=== PATIENT | male | born 1960 | race Caucasian/White ===

== ENCOUNTER 2016-10-19 11:16 | Observation (INO) ==
--- NOTE | 2016-10-19 11:44 | Emergency Department Note ---
Disposition Clinical Impression: Aplastic anemia Qualifiers: Bone marrow failure anemia type: unspecified bone marrow failure Qualified Code (s): D61.9 - Aplastic anemia, unspecified Anemia Qualifiers: Anemia type: unspecified type Qualified Code(s): D64.9 - Anemia, unspecified Disposition: Admitted As Inpatient Referrals: Juan Chang DO [Primary Care Provider] - Forms: ED Satisfaction Letter Time of Disposition: 12:25 Recheck wound or abnormal lab - General Chief Complaint: ED Recheck/Abnormal Lab/Rx Stated Complaint: abnormal labs, low hgb Time Seen by Provider: 10/19/16 11:38 Source: patient, family Mode of arrival: ambulatory Limitations: no limitations Nursing Notes Reviewed: Yes Vital Signs Reviewed: Yes - History of Present Illness HPI Narrative: 6-year-old male with a history of aplastic anemia comes in with for a blood transfusion he was seen yesterday in hematology and his hemoglobin was reported at 5. Patient did have a intracerebral hemorrhage back in August and did receive blood then. He at this point in time. Pt Subjective Complaint: abnormal lab(s) Symptoms Since Prior Visit: no new symptoms Context: called for abnormal lab result Associated symptoms: other (Weakness lysed) - Related Data Previous Rx's Medication Instructions Recorded Handicap Placard 1 each .ROUTE AD #1 each 01/07/15 Aspirin [Adult Low Dose Aspirin EC] 81 mg PO DAILY #30 tablet. 03/07/15 Atorvastatin Calcium [Lipitor] 80 mg PO DAILY #30 tablet 03/07/15 Folic Acid 1 mg PO DAILY #30 tablet 03/07/15 Pantoprazole Sodium 40 mg PO DAILY #30 tablet. 03/07/15 Hydrocortisone 2.5% CREAM [Cortaid] 1 appl TP TID #1 tube 07/23/15 Aspirin Enteric Coated [Aspirin EC] 81 mg PO DAILY #90 tablet. 09/12/15 Folic Acid 1 mg PO DAILY #90 tablet 09/12/15 Cyanocobalamin (Vitamin B-12) 1,000 mcg PO DAILY #30 tablet 12/10/15 [Vitamin B-12] Calcium Carbonate/Vitamin D3 1 tab PO DAILY #30 tablet 02/03/16 [Calcium 600 + Vit D Tablet] Hydrocodone/Acetaminophen [[place] 1 each PO BID PRN #60 tablet 02/03/16 5-325 Tablet] HYDROcodone/Acet 10/325 mg [[place] 1 tab PO Q6HR PRN #60 tab 05/14/16 10-325 mg] predniSONE [PredniSONE] 2 tab PO DAILY #60 tablet 10/05/16 Allergies Allergy/AdvReac Type Severity Reaction Status Date / Time No Known Allergies Allergy Verified 01/07/15 13:55 Constitutional: Denies: fever, chills, weakness, weight change Eyes: Denies: eye pain, eye discharge, vision change ENT ED: Denies: ear pain, throat pain, dental pain, hearing loss, epistaxis, congestion, dysphagia Cardiovascular: Denies: chest pain, palpitations, dyspnea on exertion, edema, syncope Respiratory: Denies: cough, dyspnea, wheezes, hemoptysis, stridor Gastrointestinal: Denies: abdominal pain, nausea, vomiting, diarrhea, constipation, hematemesis, melena, hematochezia Genitourinary: Denies: urgency, dysuria, frequency, hematuria Musculoskeletal: Denies: back pain, neck pain, arthralgia, myalgia Integumentary: Denies: rash, abrasion, lesions Neurological: Reports: weakness. Denies: headache, numbness, paresthesias, confusion, abnormal gait, vertigo Psychiatric: Denies: anxiety, depression, suicidal thoughts, homicidal thoughts , auditory hallucinations, visual hallucinations Endocrine: Denies: fatigue Hematological/Lymphatic: Denies: easy bleeding, easy bruising Allergic/Immunologic: Denies: facial swelling, urticaria Past Medical History - Past Medical History Medical history: Reports: cancer, CHF, COPD, coronary artery disease, CVA, hyperlipidemia, myocardial infarction, seizures Psychiatric history: Reports: no psych history - Social History Smoking Status: Current every day smoker Smokeless Tobacco Status: No Alcohol use: Reports: none Drug use: Reports: none Physical Exam - General Limitations: no limitations General appearance: alert, in no apparent distress - Head Head exam: atraumatic, normocephalic, normal inspection - Eye Eye exam: Present: normal appearance, PERRL, EOMI - ENT ENT exam: normal exam, normal oropharynx, mucous membranes moist - Neck Neck exam: Present: normal inspection, full ROM, trachea midline - Chest Chest inspection: Present: normal inspection, symmetric chest wall rise - Respiratory Respiratory exam: Present: normal lung sounds bilaterally - Cardiovascular Cardiovascular exam: Present: regular rate, normal rhythm, normal heart sounds - Abdominal Exam Abdominal exam: Present: soft, Non-Tender. Absent: tenderness, distention, guarding, rebound, rigidity - Extremities Exam Extremities exam: Present: normal inspection, full ROM. Absent: tenderness, pedal edema - Expanded Lower Extremity Exam Neurovascular/Tendon exam: Absent: motor deficit, sensory deficit, tendon deficit Gait: observed and normal - Back Exam Back exam: Present: normal inspection, full ROM. Absent: tenderness - Neurological Exam Neurological exam: Present: alert, oriented X3 - Psychiatric Psychiatric exam: Present: normal affect, normal mood - Skin Skin exam: Present: warm, dry, intact, normal color Course - Reevaluation(s) Reevaluation #1: Patient with a lifelong history of aplastic anemia who was seen in the hematology clinic yesterday had lab work done came back today with a hemoglobin of 5.4. He was sent here for transfusion. Time: 12:24 - Consultations Consultation #1: Discussed with , admit. Time: 12:24 Vital Signs Temperature 98.1 F 10/19/16 11:22 Pulse Rate 101 10/19/16 11:22 Respiratory Rate 18 10/19/16 11:22 Blood Pressure 124/70 10/19/16 11:22 O2 Sat by Pulse Oximetry 99 10/19/16 11:22 Temperature 98.1 F 10/19/16 11:22 Pulse Rate 63 10/19/16 12:11 Respiratory Rate 18 10/19/16 12:11 Blood Pressure 154/90 10/19/16 12:11 O2 Sat by Pulse Oximetry 99 10/19/16 12:11 Oxygen Delivery Oxygen Delivery Room Air Recheck wound or abnormal lab - Lab Data Lab results reviewed: Yes I reviewed the patient's lab results. Result diagrams: 10/19/16 11:51 10/19/16 11:51 Lab Results 10/19/16 10/19/16 10/19/16 Range/Units 11:51 11:51 11:51 WBC 5.5 (4.3-11.1) K/mcL RBC 1.56 L (4.19-5.50) M/mcL Hgb 5.6 L* (12.9-16.9) g/dL Hct 16.9 L (37.5-50.1) % MCV 108.3 H (83.0-100.0) fL MCH 35.9 H (28.0-33.3) pg MCHC 33.1 (31.6-35.5) g/dL RDW 23.2 H (11.5-14.5) % Plt Count 173 (140-400) K/mcL MPV 10.9 (9.4-12.4) fL PT 10.7 (9.4-12.1) Seconds INR 1.0 APTT 23.5 L (26.0-36.0) Seconds Sodium 137 (136-145) mEq/L Potassium 4.4 (3.5-4.5) mEq/L Chloride 103 (98-109) mEq/L Carbon Dioxide 27 (19-29) mEq/L BUN 15 (8-26) mg/dL Creatinine 1.08 (0.72-1.25) mg/dL Est GFR ( Amer) > 60 (> 60) Est GFR (Non-Af Amer) > 60 (> 60) BUN/Creatinine Ratio 14 (6-26) Glucose 101 H (70-99) mg/dL Calculated Osmolality 285 (280-300) Calcium 9.1 (8.6-10.8) mg/dL
[2016-10-19 12:03] LABS: Basophils % 0.2 %; Eosinophils # 0.1 K/mcL (0.0-0.6); Eosinophils % 2.4 %; Hematocrit 16.9 % (37.5-50.1); Immature Granulocytes % 0.5 % (0-4); Lymphocytes # 1.6 K/mcL (0.6-4.6); Lymphocytes % 29.3 %; Mean Corpuscular HGB Conc 33.1 g/dL (31.6-35.5); Mean Corpuscular Hemoglobin 35.9 pg (28.0-33.3); Mean Corpuscular Volume 108.3 fL (83.0-100.0); Mean Platelet Volume 10.9 fL (9.4-12.4); Monocytes # 0.4 K/mcL (0.0-1.3); Monocytes % 7.7 %; Neutrophils # 3.3 K/mcL (1.6-8.9); Platelet Count 173 K/mcL (140-400); Red Blood Count 1.56 M/mcL (4.19-5.50); Red Cell Distribution Width 23.2 % (11.5-14.5); Segmented Neutrophils % 59.9 %
[2016-10-19 12:07] LABS: Hemoglobin 5.6 g/dL (12.9-16.9)
[2016-10-19 12:10] LABS: Prothrombin Time 10.7 Seconds (9.4-12.1)
[2016-10-19 12:13] LABS: Activated Partial Thrombo Time 23.5 Seconds (26.0-36.0)
[2016-10-19 12:15] LABS: BUN/Creatinine Ratio 14 (6-26); Blood Urea Nitrogen 15 mg/dL (8-26); Calcium 9.1 mg/dL (8.6-10.8); Carbon Dioxide 27 mEq/L (19-29); Chloride 103 mEq/L (98-109); Glucose 101 mg/dL (70-99); Osmolality,Calculated 285 (280-300); Potassium 4.4 mEq/L (3.5-4.5); Sodium 137 mEq/L (136-145); eGFR For African Americans > 60 (> 60); eGFR For Non-African Americans > 60 (> 60)
[2016-10-19 12:26] LABS: Anisocytosis 3+ (Not Present); Hypochromasia Present (Not Present); Microcytosis Present (Not Present)
[2016-10-19 12:27] LABS: Platelet Estimate Normal (Normal)
--- NOTE | 2016-10-19 13:18 | Internal Med History&Physical ---
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 We will transfuse packed red blood cells. Consult hematology for further recommendations. Moderate risk for complications. We will check iron, folic acid and B12 levels. 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 Follow hematology oncology recommendations Internal Medicine - H&P: HPI Chief complaint: Low hemoglobin levels Admitted From: Emergency Dept Plans for Post Hospital Care: Home History of present illness: Mr. Martinez is a 56 year old male patient with history of pure red cell aplasia , intracranial hemorrhage, prior bioprosthetic aortic valve replacement presented to the ER with complaints of low hemoglobin levels. Patient denies any dizziness or weakness but gets tired with minimal activity. He had a intracranial hemorrhage earlier this year that required intracranial surgery and evacuation during which time he required blood transfusion. He underwent skull replacement last month. He has not required blood transfusions otherwise and has maintained his blood counts fairly well with medications. He has been on prednisone, vitamin B12 and folic acid. Blood work done yesterday showed a hemoglobin of 5.4. As such she was asked to come to the ER. This morning his hemoglobin level is 5.6. He denies any hematemesis or melena. No other bleeding reported. Patient is not on long-term anticoagulation. He does take daily 81 mg aspirin. Past Med Surg Social Fam HX - Past Medical History Attestation: Yes The following information was validated with the patient. Source: patient, obtained from family Medical history: cancer, CHF, COPD, coronary artery disease, CVA, hyperlipidemia , myocardial infarction, seizures, other (Pure red cell aplasia) Psychiatric history: no psych history - Social History Smoking Status: Current every day smoker Smokeless Tobacco Status: No Alcohol use: none Drug use: none - Additional Family History Additional family history: Reviewed and found to be noncontributory at this time Internal Medicine - H&P: Meds Handicap Placard 1 each .ROUTE AD #1 each 01/07/15 [Rx] Aspirin [Adult Low Dose Aspirin EC] 81 mg PO DAILY #30 tablet. 03/07/15 [Rx] Atorvastatin Calcium [Lipitor] 80 mg PO DAILY #30 tablet 03/07/15 [Rx] Folic Acid 1 mg PO DAILY #30 tablet 03/07/15 [Rx] Pantoprazole Sodium 40 mg PO DAILY #30 tablet. 03/07/15 [Rx] Hydrocortisone 2.5% CREAM [Cortaid] 1 appl TP TID #1 tube 07/23/15 [Rx] Aspirin Enteric Coated [Aspirin EC] 81 mg PO DAILY #90 tablet. 09/12/15 [Rx] Folic Acid 1 mg PO DAILY #90 tablet 09/12/15 [Rx] Cyanocobalamin (Vitamin B-12) [Vitamin B-12] 1,000 mcg PO DAILY #30 tablet 12/09 [Rx] Calcium Carbonate/Vitamin D3 [Calcium 600 + Vit D Tablet] 1 tab PO DAILY #30 tablet 02/03/16 [Rx] Hydrocodone/Acetaminophen [[place] 5-325 Tablet] 1 each PO BID PRN #60 tablet 08/15 [Rx] HYDROcodone/Acet 10/325 mg [[place] 10-325 mg] 1 tab PO Q6HR PRN #60 tab 05/14/16 [Rx] predniSONE [PredniSONE] 2 tab PO DAILY #60 tablet 10/05/16 [Rx] Allergies No Known Allergies Allergy (Verified 01/07/15 13:55) All Systems PM: A 10-system review of systems was performed and is negative for pertinent findings except as documented above in the HPI. - Constitutional Constitutional: fatigue, no chills, no fever(s), no night sweats - EENT Eyes: no change in vision, no discharge, no pain, no photophobia Ears: no ear discharge, no ear pain, no tinnitus Nose, mouth and throat: no dysphagia, no nasal discharge, no neck pain, no sore throat - Cardiovascular Cardiovascular ROS IM: no chest pain, no diaphoresis, no dyspnea, no lightheadedness, no palpitations, no syncope - Respiratory Respiratory: no cough, no dyspnea, no wheezing, no excessive phlegm production - Gastrointestinal Gastrointestinal: no abdominal pain, no diarrhea, no hematemesis, no hematochezia, no melena, no nausea, no vomiting - Musculoskeletal Musculoskeletal ROS IM: no numbness, no tingling - Integumentary Integumentary IM: no rash, no unusual bruising - Neurological Neurological ROS: no confusion, no convulsions, no focal weakness, no numbness, no tingling, no tremor(s) - Hematologic/Lymphatic Hematologic/Lymphatic: no easy bruising - Constitutional Vitals: Temp Pulse Resp BP Pulse Ox 98.1 F 63 18 154/90 99 10/19/16 11:22 10/19/16 12:11 10/19/16 12:11 10/19/16 12:11 10/19/16 12:11 General appearance: Present: A&O X 3, answers questions appropriately - Eye Eye exam: Present: EOMI, PERRL, conjuntiva pink, sclera anicteric Additional comments: pallor - Neck Neck exam general surgery: Present: supple, trachea midline. Absent: lymphadenopathy - Respiratory Respiratory exam: Present: CTAB. Absent: accessory muscle use, rales, rhonchi, wheezes - GI/Abdominal GI/Abdominal exam: Present: normal bowel sounds, soft, no peritoneal signs. Absent: distended, tenderness - Extremities Exam Extremities exam: Present: warm, radial pulses palpable and symetrical. Absent : calf tenderness, cyanotic, pedal edema - Neurological Exam Neurological exam: Present: alert, CN II-XII intact, oriented X3, no focal deficits. Absent: facial droop, speech deficit - Skin Skin exam: Present: dry, intact, pallor Internal Med - H&P Results - Labs CBC & Chem 7: 10/19/16 11:51 10/19/16 11:51
[2016-10-19] MEDS ORDERED: Naloxone 0.4 MG/ML INJ IVP PRN (13:21)
[2016-10-19] MEDS ORDERED: Acetaminophen 325 MG TABLET PO PRN (13:21)
[2016-10-19] MEDS ORDERED: *HR* HYDROcodone/Acet 10/325 mg TABLET PO PRN (14:16)
[2016-10-19 15:10] LABS: Vitamin B12 1578 pg/mL (213-816)
[2016-10-19 15:12] LABS: Immature Reticulocyte % 22.1 % (11.0-38.0); Retculocyte # 0.05 M/mcL (0.05-0.10); Reticulocyte % 3.3 % (1.6-2.8)
[2016-10-19 15:13] LABS: Folate > 40.0 ng/mL (7.0-31.4)
[2016-10-19] MEDS ORDERED: 0.9 % Sodium Chloride 250 ML ONE ×2 (15:26→18:46)
[2016-10-19] MEDS ORDERED: levETIRAcetam 250 MG TABLET PO SCH (21:00)
[2016-10-19] MEDS: Metoprolol XL (24 HR) Succ 25 MG TAB.ER.24H PO SCH (22:32)
[2016-10-20 06:57] LABS: Basophils % 0.7 %; Eosinophils # 0.2 K/mcL (0.0-0.6); Eosinophils % 3.4 %; Hematocrit 23.8 % (37.5-50.1); Immature Granulocytes % 0.9 % (0-4); Lymphocytes % 44.9 %; Mean Corpuscular HGB Conc 34.5 g/dL (31.6-35.5); Mean Corpuscular Hemoglobin 32.8 pg (28.0-33.3); Mean Platelet Volume 11.2 fL (9.4-12.4); Monocytes # 0.3 K/mcL (0.0-1.3); Monocytes % 6.8 %; Neutrophils # 1.9 K/mcL (1.6-8.9); Platelet Count 123 K/mcL (140-400); Red Cell Distribution Width 22.3 % (11.5-14.5); Segmented Neutrophils % 43.3 %
[2016-10-20 07:03] LABS: Hemoglobin 8.2 g/dL (12.9-16.9); Mean Corpuscular Volume 95.2 fL (83.0-100.0)
[2016-10-20] MEDS: Metoprolol XL (24 HR) Succ 25 MG TAB.ER.24H PO SCH (08:47)
[2016-10-20] MEDS ORDERED: predniSONE 5 MG TABLET PO SCH (09:00)
[2016-10-20] MEDS ORDERED: (Calcium Carbonate/Vitamin D3 [Calcium 600 + Vit D Ta) PO SCH (09:00)
[2016-10-20] MEDS ORDERED: levETIRAcetam 250 MG TABLET PO SCH (09:00)
[2016-10-20] MEDS ORDERED: Folic Acid 1 MG TABLET PO SCH (09:00)
[2016-10-20] MEDS ORDERED: Cyanocobalamin (B-12) 1,000 MCG TABLET PO SCH (09:00)
[2016-10-20] MEDS ORDERED: Aspirin Enteric Coated 81 MG Tablet PO SCH (09:00)
--- NOTE | 2016-10-20 09:21 | Oncology Inp Consult Note ---
Date of Encounter: 10/20/16 Time of Encounter: 08:00 Assessment and Plan (1) Pure red cell aplasia Status: Chronic Assessment and plan: Acute anemia that clinically appears consistent with blood loss from recent surgery. Patient has a reticulocytosis as well as nuclear red blood cells on peripheral smear indicative of active marrow response. Let cell count and peripheral count on admission were normal. He has received 2 units packed blood blood cells with a hemoglobin of 8.2. He has an appointment with Dr. Suero in October. Perspective, he may be discharged home with follow-up with Dr. Suero is scheduled. We will repeat his CBC at his next visit. Please call with any concerns or questions. 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 Martinez is a 56 year old male who is under the care of my partner, Dr. Suero, for pure red cell aplasia. Patient was last seen in May with a stable hemoglobin. He is maintained on chronic prednisone with excellent control. Unfortunately patient is a poor historian. Per the patient as well as medical records, he did have a bioprosthetic valve replacement in the recent past and also an intracranial hemorrhage following a fall that required evacuation and in August reconstruction. It sounds as though he required blood transfusion perioperatively. Routine lab work ordered by Dr. Suero at outside hospital revealed a hemoglobin of 5.4. As there is difficulty arranging outpatient transfusion, he was admitted and received 2 U packed blood cells with subsequent increase to 8.2. Of note, he does have a reticulocytosis as well as nuclear red blood cells peripherally indicative of an active marrow response to anemia. Iron studies are more than adequate secondary to previous iron overload from blood transfusion. He feels well this morning. He is anxious to go home Past Med Surg Social Fam HX - Past Medical History Medical history: CHF, COPD, coronary artery disease, CVA, hyperlipidemia, myocardial infarction, seizures, other Psychiatric history: no psych history - Social History Smoking Status: Current every day smoker Smokeless Tobacco Status: No Alcohol use: none Drug use: none Medications and Allergies Atorvastatin Calcium [Lipitor] 80 mg PO DAILY #30 tablet 03/07/15 [Rx] Pantoprazole Sodium 40 mg PO DAILY #30 tablet. 03/07/15 [Rx] Aspirin Enteric Coated [Aspirin EC] 81 mg PO DAILY #90 tablet. 09/12/15 [Rx] Folic Acid 1 mg PO DAILY #90 tablet 09/12/15 [Rx] Cyanocobalamin (Vitamin B-12) [Vitamin B-12] 1,000 mcg PO DAILY #30 tablet 12/09 [Rx] Calcium Carbonate/Vitamin D3 [Calcium 600 + Vit D Tablet] 1 tab PO DAILY #30 tablet 02/03/16 [Rx] HYDROcodone/Acet 10/325 mg [[place] 10-325 mg] 1 tab PO Q6HR PRN #60 tab 05/14/16 [Rx] Lisinopril [Zestril] 5 mg PO DAILY 10/19/16 [History] Metoprolol XL (24 HR) Succ [Toprol XL] 12.5 mg PO BID 10/19/16 [History] levETIRAcetam [Keppra] 250 mg PO DAILY MDD BEING TAPERED OFF 10/19/16 [History] predniSONE [PredniSONE] 5 mg PO DAILY 10/19/16 [History] Allergies No Known Allergies Allergy (Verified 01/07/15 13:55) All systems: reviewed and no additional remarkable complaints except as stated Psychiatric: Present: memory loss Oncology - Exam - Constitutional Vitals: Temp Pulse Resp BP Pulse Ox 97.3 F L 55 13 118/71 99 10/20/16 07:26 10/20/16 07:26 10/20/16 07:26 10/20/16 07:26 10/20/16 08:58 - Head Head exam: Present: normal inspection, normocephalic Additional comments: Wounds C/D/I - Eye Eye exam: Present: conjuntiva pink, sclera anicteric - ENT ENT exam: Present: mucous membranes moist, normal oropharynx - Neck Neck exam: Present: full ROM, normal inspection - Respiratory Respiratory exam: Present: CTAB - Cardiovascular Cardiovascular exam: Present: RRR - GI/Abdominal GI/Abdominal exam: Present: normal bowel sounds, soft - Extremities Exam Extremities exam: Present: normal inspection - Neurological Exam Neurological exam: Present: CN II-XII intact, oriented X3, no focal deficits - Skin Skin exam: Present: normal color Oncology - Results - Labs Labs: Short CBC 10/20/16 Range/Units 06:18 WBC 4.4 (4.3-11.1) K/mcL Hgb 8.2 L D (12.9-16.9) g/dL Hct 23.8 L (37.5-50.1) % Plt Count 123 L (140-400) K/mcL Neutrophils # 1.9 (1.6-8.9) K/mcL Consult Discharge Plan - Plan Referrals: Juan Chang DO [Primary Care Provider] -
--- NOTE | 2016-10-20 10:51 | Discharge Summary ---
Date of Encounter: 10/20/16 Time of Encounter: 10:49 - Discharge Diagnosis (1) Aplastic anemia Priority: Primary Status: Acute Comments: Severe pure Red cell aplasia Qualifiers: Bone marrow failure anemia type: pure red cell aplasia, acquired, other Qualified Code(s): D60.8 - Other acquired pure red cell aplasias (2) Intracranial hemorrhage Priority: Secondary Status: Acute Comments: History of intracranial hemorrhage status post craniectomy (3) History of aortic valve replacement with bioprosthetic valve Priority: Secondary Status: Acute (4) COPD (chronic obstructive pulmonary disease) Priority: Secondary Status: Acute Qualifiers: COPD type: emphysema Emphysema type: unspecified Qualified Code(s): J43.9 - Emphysema, unspecified (5) CAD (coronary artery disease) Priority: Secondary Status: Acute Qualifiers: Coronary Disease-Associated Artery/Lesion type: [place] artery [place] vs. transplanted heart: [place] heart Associated angina: without angina Qualified Code(s): I25.10 - Atherosclerotic heart disease of [place] coronary artery without angina pectoris (6) Pure red cell aplasia Priority: Primary Status: Chronic (7) Tobacco abuse Priority: Secondary Status: Acute Comments: smoking cessation counseling given for 5 min - Discharge Medications Home Medications: Atorvastatin Calcium [Lipitor] 80 mg PO DAILY #30 tablet 03/07/15 [Rx] Pantoprazole Sodium 40 mg PO DAILY #30 tablet. 03/07/15 [Rx] Aspirin Enteric Coated [Aspirin EC] 81 mg PO DAILY #90 tablet. 09/12/15 [Rx] Folic Acid 1 mg PO DAILY #90 tablet 09/12/15 [Rx] Cyanocobalamin (Vitamin B-12) [Vitamin B12] 1,000 mcg PO DAILY #30 tablet [Rx] Calcium Carbonate/Vitamin D3 [Calcium 600 + Vit D Tablet] 1 tab PO DAILY #30 tablet 02/03/16 [Rx] HYDROcodone/Acet 10/325 mg [[place] 10-325 mg] 1 tab PO Q6HR PRN #60 tab 05/14/16 [Rx] Lisinopril [Zestril] 5 mg PO DAILY 10/19/16 [History] Metoprolol XL (24 HR) Succ [Toprol Xl] 12.5 mg PO BID 10/19/16 [History] levETIRAcetam [Keppra] 250 mg PO DAILY MDD BEING TAPERED OFF 10/19/16 [History] predniSONE [PredniSONE] 5 mg PO DAILY 10/19/16 [History] Allergies/Adverse Reactions: Allergies No Known Allergies Allergy (Verified 01/07/15 13:55) Date of admission: 10/19/16 13:11 Primary care physician: Juan Chang Consults: 10/19/16 13:37 Consult to Oncology Hematology [CONS] Routine Consulting Provider: Thom Arias Reason for Consult: Pure red cell aplasia Time Notified: 13:38 Call Completed: Yes - Patient Status Disposition: Home, Self-Care Condition: Good Overall status at discharge: patient is back to baseline - Discharge Instructions Instructions: Anemia (GEN) Follow Up With: Juan Chang DO [Primary Care Provider] - Additional Instructions: Follow with primary care physician within next [address] Suero within the next 2 weeks. - Diet and Activity Activity: increase activity as tolerated Diet: low fat, low cholesterol Hospital course: Mr. Martinez is a 56 year old male with a past medical history of pure red cell aplasia, intracranial hemorrhage, craniectomy, CAD, COPD not oxygen dependent, tobacco use, CVA,, prior bioprosthetic aortic valve replacement presented to the ER with complaints of low hemoglobin levels. The patient is under the care of Dr. Suero, for pure red cell aplasia. Patient was last seen in May with a stable hemoglobin. He is maintained on chronic prednisone with excellent control. Unfortunately patient is a poor historian. Patient denied any dizziness or weakness but gets tired with minimal activity. He had a intracranial hemorrhage earlier this year that required intracranial surgery and evacuation during which time he required blood transfusions. He underwent a skull reconstruction last month. He has not required blood transfusions otherwise and has maintained his blood counts fairly well with medications. He has been on prednisone, vitamin B12 and folic acid. Blood work done the day before his admission showed a hemoglobin of 5.4. As such he was asked to come to the ER. He denied any hematemesis or melena. No other bleeding reported. Patient is not on long-term anticoagulation. He does take daily 81 mg aspirin. The patient was evaluated by the oncology service and the recommendation of discharge the patient was made. He has received 2 units packed blood blood cells with a hemoglobin of 8.2. He has an appointment with Dr. Suero in October. May be discharged home with follow-up with Dr. Suero . Time spent discussing smoking cessation with patient: 3 to 10 minutes - Time Spent with Patient Total time spent providing and/or coordinating discharge services: Greater than 30 minutes (40 min) - Constitutional Vitals: Temp Pulse Resp BP Pulse Ox 97.3 F L 55 13 118/71 99 10/20/16 07:26 10/20/16 07:26 10/20/16 07:10/20/16 07:10/20/16 08:58 General appearance: Present: A&O X 3, answers questions appropriately - Head Head exam: Present: atraumatic, normocephalic Additional comments: Craniectomy wound on the left temporal area without signs of infection and healing properly - Eye Eye exam: Present: PERRL, conjuntiva pink, sclera anicteric Pupils: Present: PERRL - Neck Neck exam general surgery: Present: supple, trachea midline. Absent: lymphadenopathy - Respiratory Respiratory exam: Present: CTAB. Absent: accessory muscle use, rales, rhonchi, wheezes - Cardiovascular Cardiovascular exam: Present: RRR, +S1. Absent: diastolic murmur, gallop, rubs , +S2 (Systolic click), systolic murmur - GI/Abdominal GI/Abdominal exam: Present: normal bowel sounds, soft, no peritoneal signs. Absent: distended, tenderness - Extremities Exam Extremities exam: Present: warm, radial pulses palpable and symetrical. Absent : calf tenderness, cyanotic, pedal edema - Neurological Exam Neurological exam: Present: CN II-XII intact, oriented X3, no focal deficits. Absent: pronater drift, facial droop, speech deficit - Skin Skin exam: Present: dry, intact
[2016-10-20 11:06] VITALS: BP 108/62
== END 2016-10-20 12:45 | disposition home or self-care (01) ==
LOC: 2ANU 11:16 → EMEROO 11:16 → 2ANU 13:45
PROVIDERS: ADMIT Internal Medicine; ATTEND Internal Medicine